=== PATIENT | male | born 2000 ===

== ENCOUNTER 2018-02-21 01:01 | Emergency (ER) | payer SELFPAY ==
--- NOTE | 2018-02-21 01:20 | ER Report ---
History and Physical Time Seen By MD: 01:19 Hx. of Stated Complaint: patient having really bad lower abd pain, nauesa and vomiting. patient states constipation as well. HPI/ROS CHIEF COMPLAINT: abdominal pain, nausea with vomiting HISTORY OF PRESENT ILLNESS: This is a 17 year old male. He has had chronic problems with constipation and has been having some recently, but tonight had sudden onset of severe lower abdominal pain on the left. Sharp and cramping. Associated with nausea and vomiting. No fevers or chills. Normal urination. No chest pain or shortness of breath. Allergies: Coded Allergies: No Known Drug Allergies (Unverified , 02/21/18) Home Meds No Active Prescriptions or Reported Meds Reviewed Nurses Notes: Yes Constitutional Vital Sign - Last 24 Hours 02/21/18 02/21/18 02/21/18 02/21/18 01:07 01:16 01:30 01:31 Temp 97.9 Pulse 73 66 77 Resp 24 B/P (MAP) 146/107 125/90 (102) Pulse Ox 96 98 99 O2 Delivery Room Air 02/21/18 02/21/18 02/21/18 02/21/18 02:00 02:01 02:30 02:46 Pulse 71 61 B/P (MAP) 141/88 (105) 134/89 (104) Pulse Ox 89 99 02/21/18 02/21/18 02/21/18 02/21/18 02:51 03:06 03:21 04:16 Pulse ? 66 63 B/P (MAP) 142/77 (98) Pulse Ox 98 93 92 96 O2 Delivery Room Air Physical Exam General Appearance: The patient is alert. Acute distress from vomiting and pain. Eyes: Pupils are equal, round. No pallor, injection or icterus. ENT: Mucous membranes are moist. Neck: Supple and non tender. No lymphadenopathy. Respiratory: Lungs are clear to auscultation. Cardiovascular: Regular rate and rhythm. No murmurs, gallops or rubs. Normal capillary refill. Gastrointestinal: Abdomen is soft, diffusely tender. Non-distended. Hyperactive bowel sounds. Neurological: Alert and oriented x3. Skin: Warm and dry. DIFFERENTIAL DIAGNOSIS: After history and physical exam, differential diagnosis was considered for abdominal pain including but not limited to appendicitis, cholecystitis, gastritis and urinary tract infection. Medical Decision Making Data Points Result Diagram: 02/21/18 0113 02/21/18 0113 Laboratory Hematology Test 02/21/18 01:13 02/21/18 02:19 02/21/18 03:03 Red Blood Count 5.96 M/uL (4.00-5.60) Mean Corpuscular Volume 88.3 fL (80.0-96.0) Mean Corpuscular Hemoglobin 31.3 pg (26.0-33.0) Mean Corpuscular Hemoglobin Concent 35.4 g/dL (32.0-36.0) Red Cell Distribution Width 13.0 % (11.5-14.5) Mean Platelet Volume 8.1 fL (7.2-11.1) Neutrophils (%) (Auto) 68.7 % (39.4-72.5) Lymphocytes (%) (Auto) 22.4 % (17.6-49.6) Monocytes (%) (Auto) 7.2 % (4.1-12.4) Eosinophils (%) (Auto) 1.2 % (0.4-6.7) Basophils (%) (Auto) 0.5 % (0.3-1.4) Nucleated RBC Relative Count (auto) 0.2 /100WBC Neutrophils # (Auto) 6.7 K/uL (2.0-7.4) Lymphocytes # (Auto) 2.2 K/uL (1.3-3.6) Monocytes # (Auto) 0.7 K/uL (0.3-1.0) Eosinophils # (Auto) 0.1 K/uL (0.0-0.5) Basophils # (Auto) 0.0 K/uL (0.0-0.1) Nucleated RBC Absolute Count (auto) 0.02 K/uL Sodium Level 141 mmol/L (137-145) Potassium Level 4.1 mmol/L (3.5-5.0) Chloride Level 101 mmol/L (98-107) Carbon Dioxide Level 24 mmol/L (22-30) Blood Urea Nitrogen 15 mg/dl (9-21) Creatinine 0.80 mg/dl (0.66-1.25) Glomerular Filtration Rate Calc > 60.0 Random Glucose 110 mg/dl (75-110) Calcium Level 10.7 mg/dl (8.4-10.2) Total Bilirubin 0.5 mg/dl (0.2-1.3) Aspartate Amino Transf (AST/SGOT) 22 U/L (0-35) Alanine Aminotransferase (ALT/SGPT) 28 U/L (0-56) Alkaline Phosphatase 74 U/L (0-126) C-Reactive Protein 1.3 mg/dl (<1.0) Total Protein 8.0 g/dl (6.3-8.2) Albumin 5.2 g/dl (3.5-5.0) Amylase Level 100 U/L (0-110) Lipase 103 U/L (23-300) Lactate 0.9 mmol/L (0.7-2.1) Urine Color Abbi Urine Clarity Clear Urine pH 5.0 pH (4.8-9.5) Urine Specific [place] 1.027 Urine Protein Negative mg/dL (NEGATIVE) Urine Glucose (UA) Negative mg/dL (NEGATIVE) Urine Ketones Trace mg/dL (NEGATIVE) Urine Blood Negative (NEGATIVE) Urine Nitrite Negative (NEGATIVE) Urine Bilirubin Negative (NEGATIVE) Urine Urobilinogen 4.0 mg/dL (0.2-1.9) Urine Leukocyte Esterase Negative (NEGATIVE) Urine RBC <1 /HPF (0-2/HPF) Urine WBC 1 /HPF (0-5/HPF) Urine Squamous Epithelial Cells None /LPF (</=FEW) Urine Bacteria Negative /HPF (NONE-FEW) Urine Mucus Few /HPF (NONE-FEW) Chemistry Test 02/21/18 01:13 02/21/18 02:19 02/21/18 03:03 White Blood Count 9.8 k/uL (4.5-11.0) Red Blood Count 5.96 M/uL (4.00-5.60) Hemoglobin 18.6 g/dL (14.0-18.0) Hematocrit 52.7 % (42.0-52.0) Mean Corpuscular Volume 88.3 fL (80.0-96.0) Mean Corpuscular Hemoglobin 31.3 pg (26.0-33.0) Mean Corpuscular Hemoglobin Concent 35.4 g/dL (32.0-36.0) Red Cell Distribution Width 13.0 % (11.5-14.5) Platelet Count 265 K/uL (150-450) Mean Platelet Volume 8.1 fL (7.2-11.1) Neutrophils (%) (Auto) 68.7 % (39.4-72.5) Lymphocytes (%) (Auto) 22.4 % (17.6-49.6) Monocytes (%) (Auto) 7.2 % (4.1-12.4) Eosinophils (%) (Auto) 1.2 % (0.4-6.7) Basophils (%) (Auto) 0.5 % (0.3-1.4) Nucleated RBC Relative Count (auto) 0.2 /100WBC Neutrophils # (Auto) 6.7 K/uL (2.0-7.4) Lymphocytes # (Auto) 2.2 K/uL (1.3-3.6) Monocytes # (Auto) 0.7 K/uL (0.3-1.0) Eosinophils # (Auto) 0.1 K/uL (0.0-0.5) Basophils # (Auto) 0.0 K/uL (0.0-0.1) Nucleated RBC Absolute Count (auto) 0.02 K/uL Glomerular Filtration Rate Calc > 60.0 Calcium Level 10.7 mg/dl (8.4-10.2) Total Bilirubin 0.5 mg/dl (0.2-1.3) Aspartate Amino Transf (AST/SGOT) 22 U/L (0-35) Alanine Aminotransferase (ALT/SGPT) 28 U/L (0-56) Alkaline Phosphatase 74 U/L (0-126) C-Reactive Protein 1.3 mg/dl (<1.0) Total Protein 8.0 g/dl (6.3-8.2) Albumin 5.2 g/dl (3.5-5.0) Amylase Level 100 U/L (0-110) Lipase 103 U/L (23-300) Lactate 0.9 mmol/L (0.7-2.1) Urine Color Abbi Urine Clarity Clear Urine pH 5.0 pH (4.8-9.5) Urine Specific [place] 1.027 Urine Protein Negative mg/dL (NEGATIVE) Urine Glucose (UA) Negative mg/dL (NEGATIVE) Urine Ketones Trace mg/dL (NEGATIVE) Urine Blood Negative (NEGATIVE) Urine Nitrite Negative (NEGATIVE) Urine Bilirubin Negative (NEGATIVE) Urine Urobilinogen 4.0 mg/dL (0.2-1.9) Urine Leukocyte Esterase Negative (NEGATIVE) Urine RBC <1 /HPF (0-2/HPF) Urine WBC 1 /HPF (0-5/HPF) Urine Squamous Epithelial Cells None /LPF (</=FEW) Urine Bacteria Negative /HPF (NONE-FEW) Urine Mucus Few /HPF (NONE-FEW) Urinalysis Test 02/21/18 03:03 Urine Color Abbi Urine Clarity Clear Urine pH 5.0 pH (4.8-9.5) Urine Specific [place] 1.027 Urine Protein Negative mg/dL (NEGATIVE) Urine Glucose (UA) Negative mg/dL (NEGATIVE) Urine Ketones Trace mg/dL (NEGATIVE) Urine Blood Negative (NEGATIVE) Urine Nitrite Negative (NEGATIVE) Urine Bilirubin Negative (NEGATIVE) Urine Urobilinogen 4.0 mg/dL (0.2-1.9) Urine Leukocyte Esterase Negative (NEGATIVE) Urine RBC <1 /HPF (0-2/HPF) Urine WBC 1 /HPF (0-5/HPF) Urine Squamous Epithelial Cells None /LPF (</=FEW) Urine Bacteria Negative /HPF (NONE-FEW) Urine Mucus Few /HPF (NONE-FEW) EKG/Imaging Imaging ACUTE ABDOMEN SERIES 3 VIEW HISTORY: Abdominal pain. COMPARISON: None. TECHNIQUE: PA upright view of the chest, AP supine and AP upright views of the abdomen. Chest: The lungs are clear. The cardiac and mediastinal silhouettes are within normal limits. There is a slight rightward curvature of the thoracic spine. Abdomen: The distribution of bowel gas is normal, with bowel in all four quadrants as well as centrally. No free air. There is a moderate to large amount of stool in the rectal vault, and a moderate amount of stool in the descending colon. There are scattered air-fluid levels within the colon and within right lower quadrant probable small bowel loops. No dilated small bowel loops. There is a mild leftward rotatory scoliosis of the lumbar spine. The lung bases are clear. IMPRESSION: 1. No acute cardiopulmonary process. 2. Moderate to large stool burden suggests constipation. There are scattered nonspecific air-fluid levels in large and small bowel. Report Dictated By: Asuncion Quintanilla at 02/21/2018 2:02 AM ED Course/Re-evaluation Clinical Indication for ER IV: Hydration, IV Access ED Course Initial treatment with Morphine, Zofran, Protonix and a liter of normal saline. Improved. Discussed lab results and imaging results. Discussed trying to treat constipation versus doing a CT scan given the severity of pain. After discussion , the patient would prefer to try medicines. He was able to have a bowel movement and feels a lot better. Discussed chronic treatment for constipation. Decision to Disposition Date: Feb 21, 2018 Decision to Disposition Time: 04:01 Depart Departure Latest Vital Signs Vital Signs Date Time Temp Pulse Resp B/P (MAP) Pulse Ox O2 Delivery O2 Flow Rate FiO2 02/21/18 04:16 63 142/77 (98) 96 Room Air 02/21/18 01:07 97.9 24 Impression: Primary Impression: Constipation Condition: Improved Disposition: HOME OR SELF-CARE New Scripts No Active Prescriptions or Reported Meds Patient Instructions: Constipation (ED) Additional Instructions: Increase fluid intake. Start taking Miralax powder. Start by taking one capful mixed in liquid daily. You can adjust the amount every 4-5 days. Problem Qualifiers Primary Impression: Constipation Constipation type: unspecified constipation type Qualified Codes: K59.00 - Constipation, unspecified ZIGGY MCDONALD MD Feb 21, 2018 01:19
[2018-02-21] MEDS ORDERED: NS(*) 0.9% 1000 ML BAG 1,000 ML IV ONE (01:23)
[2018-02-21] MEDS ORDERED: MORPHINE 4 MG/ML SDV IVP ONE (01:25)
[2018-02-21] MEDS ORDERED: PANTOPRAZOLE SOD 40 MG IV VIAL IVP ONE (01:25)
[2018-02-21] MEDS ORDERED: ONDANSETRON 4 MG/2 ML VIAL IVP ONE (01:25)
[2018-02-21 01:35] LABS: PLATELET COUNT, AUTOMATED 265 K/uL (150-450)
--- NOTE | 2018-02-21 02:10 | RADIOLOGY IMAGING REPORT ---
FACILITY: [facility] [place] PATIENT NAME: Rl Winn : 2000 MR: [id number] V: [id number] EXAM DATE: ORDERING PHYSICIAN: ZIGGY MCDONALD TECHNOLOGIST: Location: [facility] Patient: Rl Winn : 2000 Visit/Account:[id number] Date of Sevice: 02/21/2018 ACUTE ABDOMEN SERIES 3 VIEW HISTORY: Abdominal pain. COMPARISON: None. TECHNIQUE: PA upright view of the chest, AP supine and AP upright views of the abdomen. Chest: The lungs are clear. The cardiac and mediastinal silhouettes are within normal limits. There i s a slight rightward curvature of the thoracic spine. Abdomen: The distribution of bowel gas is normal, with bowel in all four quadrants as well as central ly. No free air. There is a moderate to large amount of stool in the rectal vault, and a moderate francisco unt of stool in the descending colon. There are scattered air-fluid levels within the colon and withi n right lower quadrant probable small bowel loops. No dilated small bowel loops. There is a mild leftward rotatory scoliosis of the lumbar spine. The lung bases are clear. IMPRESSION: 1. No acute cardiopulmonary process. 2. Moderate to large stool burden suggests constipation. There are scattered nonspecific air-fluid le vels in large and small bowel. Report Dictated By: Asuncion Quintanilla at 02/21/2018 2:02 AM Report E-Signed By: Asuncion Quintanilla at 02/21/2018 2:05 AM WSN:[id number]
[2018-02-21] MEDS ORDERED: BISACODYL 5 MG TABEC PO ONE (02:55)
[2018-02-21] MEDS ORDERED: MAGNESIUM HYDROXIDE* 30ML UDCP PO ONE (02:55)
[2018-02-21 04:16] VITALS: BP 142/77
== END 2018-02-21 04:19 | disposition home or self-care (01) ==
LOC: ER 01:04
DX: K59.00 Constipation, unspecified (principal)
CPT/HCPCS: 74022; 81001; 82150; 83605; 83690; 85025; 86140; 96361; 96374; 96375; 99284; C9113; J2270; J2405; J7030; 82040; 82247; 82310; 82374; 82435; 82565; 82947; 84075; 84132; 84155; 84295; 84450; 84460; 84520